=== PATIENT | male | born 1960 | race Caucasian/White ===

== ENCOUNTER 2018-02-12 10:17 | Emergency (ER) | payer OTHER ==
[2018-02-12] MEDS ORDERED: Albuterol/Ipratropium NEB.SOL* Albuterol 2.5 MG/Ipratropium 0.5 MG 3 ML INH ONE ×2 (11:02→12:29)
[2018-02-12] MEDS ORDERED: methylPREDNISolone 125 MG* 2 ML VIAL IV ONE (11:03)
--- NOTE | 2018-02-12 11:32 | RAD ---
Indication: Shortness of breath, chest pain, cough. Chest pressure. Failed treatment with Z-Eric. Comparison: February 05, 2018 Technique: Upright AP 1116 hours Report: Elevated lung volumes. Mild prominence of interstitial markings similar to the prior exam. No focal pulmonary lesion, compelling alveolar consolidation, pleural effusion, pneumothorax. The heart, pulmonary vasculature, and mediastinal contours are unremarkable. IMPRESSION: Stigmata of probable chronic obstructive pulmonary disease. No acute cardiopulmonary process evident.
[2018-02-12 11:44] LABS: ABS Basophils 0 10^3/ul (0-0.2); ABS Eosinophils 0.1 10^3/ul (0-0.6); ABS Lymphocytes 2.5 10^3/ul (1.0-4.8); ABS Monocytes 0.9 10^3/ul (0-0.8); ABS Neutrophils 7.3 10^3/ul (1.5-7.7); ABS Nucleated RBC 0 10^3/ul; Eosinophil % 0.9 % (0-6); Hematocrit 43 % (42-52); Hemoglobin 14.5 g/dl (14.0-18.0); Lymphocyte % 22.9 % (25-47); Mean Corpuscular HGB Conc 34 g/dl (31-36); Mean Corpuscular Hemoglobin 31 pg (27-31); Mean Corpuscular Volume 91 fL (80-94); Mean Platelet Volume 7.6 um3 (7.4-10.4); Nucleated Red Blood Cells % 0.1; Platelet Count 354 10^3/ul (150-450); Red Blood Count 4.72 10^6/ul (4.0-5.4); Red Cell Distribution Width 13 % (10.5-15); White Blood Count 10.8 10^3/ul (3.5-10.8)
[2018-02-12 11:51] LABS: INR 0.89 (0.77-1.02)
[2018-02-12 11:57] LABS: EGFR Non-African American 106.5 (>60)
[2018-02-12 15:09] VITALS: BP 132/81
--- NOTE | 2018-02-12 15:20 | ED ---
Rodolfo Villavicencio Julia, scribed for Mak Louise on 02/12/18 at 1102 . Respiratory - HPI Summary HPI Summary: This patient is a 57 year old M presenting to [facility] accompanied by his family with a chief complaint of SOB and general malaise for the past ten days. He states he has had a cough and congestion and was prescribed Zithromax and Prednisone on 02/03/18 with mild improvement. He reports currently resolved night sweats and fever. He reports current fatigue, throat pain, and mild shoulder pain. He states he had a CXR done about 10 days ago, that was normal. Patient was sent from his primary care physician for further evaluation. - History of Current Complaint Chief Complaint: EDShortnessOfBreath Stated Complaint: SOB-DR SENT Time Seen by Provider: 02/12/18 10:38 Hx Obtained From: Patient Onset/Duration: Gradual Onset, Lasting Weeks, Still Present Pain Intensity: 0 Character: Cough (Nonproductive) Associated Signs and Symptoms: Fever, SOB, Chest Pain with Cough, Diaphoresis, Hoarseness - throat pain - Allergy/Home Medications Allergies/Adverse Reactions: Allergies Allergy/AdvReac Type Severity Reaction Status Date / Time MS Coconut Flavor Allergy See Comment Verified 03/23/16 10:32 [Coconut Flavor] MS Molds & Smuts Allergy Difficulty Verified 03/23/16 10:32 Breathing PMH/Surg Hx/FS Hx/Imm Hx Respiratory History: Reports: Hx Asthma GI History: Reports: Hx Gastroesophageal Reflux Disease - ON MEDS History: Reports: Hx Kidney Stones - HX OF Sensory History: Reports: Hx Contacts or Glasses - READING GLASSES Denies: Hx Hearing Aid Opthamlomology History: Reports: Hx Contacts or Glasses - READING GLASSES - Surgical History Surgery Procedure, Year, and Place: CYST EXC FROM [place]OW 2010 [facility] [place] CYSTO, STENT 2011 [facility] [place] Hx Anesthesia Reactions: No Infectious Disease History: No Infectious Disease History: Denies: Traveled Outside the [place] in Last 30 Days - Social History Alcohol Use: Rare Substance Use Type: Reports: None Hx Tobacco Use: No Smoking Status (MU): Never Smoked Tobacco Review of Systems Positive: Fever, Fatigue, Skin Diaphoresis Positive: Sore Throat, Nasal Discharge - congestion Positive: Shortness Of Breath, Cough, Other - chest congestion Positive: Myalgia - shoulder pain All Other Systems Reviewed And Are Negative: Yes Physical Exam - Summary Physical Exam Summary: Appearance: Well appearing, no pain distress Skin: warm, dry, reflects adequate perfusion Head/face: normal Eyes: EOMI, RAYNE ENT: normal Neck: supple, non-tender Respiratory: CTA, breath sounds present Cardiovascular: RRR, pulses symmetrical Abdomen: non-tender, soft Bowel: present Musculoskeletal: normal, strength/ROM intact Neuro: normal, sensory motor intact, A&Ox3 Triage Information Reviewed: Yes Vital Signs On Initial Exam: Initial Vitals Temp Pulse Resp BP Pulse Ox 98.2 F 72 22 143/72 100 02/12/18 10:20 02/12/18 10:20 02/12/18 10:20 02/12/18 10:20 02/12/18 10:20 Vital Signs Reviewed: Yes Diagnostics - Vital Signs Vital Signs Temp Pulse Resp BP Pulse Ox 02/12/18 10:30 69 147/83 100 02/12/18 10:20 98.2 F 72 22 143/72 100 - Laboratory Lab Results: Lab Results 02/12/18 02/12/18 02/12/18 Range/Units 11:20 11:20 11:20 WBC 10.8 (3.5-10.8) 10^3/ul RBC 4.72 (4.0-5.4) 10^6/ul Hgb 14.5 (14.0-18.0) g/dl Hct 43 (42-52) % MCV 91 (80-94) fL MCH 31 (27-31) pg MCHC 34 (31-36) g/dl RDW 13 (10.5-15) % Plt Count 354 (150-450) 10^3/ul MPV 7.6 (7.4-10.4) um3 Neut % (Auto) 67.3 (38-83) % Lymph % (Auto) 22.9 L (25-47) % Edmonson % (Auto) 8.6 H (0-7) % Eos % (Auto) 0.9 (0-6) % Baso % (Auto) 0.3 (0-2) % Absolute Neuts (auto) 7.3 (1.5-7.7) 10^3/ul Absolute Lymphs (auto) 2.5 (1.0-4.8) 10^3/ul Absolute Monos (auto) 0.9 H (0-0.8) 10^3/ul Absolute Eos (auto) 0.1 (0-0.6) 10^3/ul Absolute Basos (auto) 0 (0-0.2) 10^3/ul Absolute Nucleated RBC 0 10^3/ul Nucleated RBC % 0.1 INR (Anticoag Therapy) 0.89 (0.77-1.02) APTT 29.1 (26.0-36.3) seconds D-Dimer, Quantitative < 200 (Less Than 230) ng/mL Sodium (139-145) mmol/L Potassium (3.5-5.0) mmol/L Chloride (101-111) mmol/L Carbon Dioxide (22-32) mmol/L Anion Gap (2-11) mmol/L BUN (6-24) mg/dL Creatinine (0.67-1.17) mg/dL Est GFR ( Amer) (>60) Est GFR (Non-Af Amer) (>60) BUN/Creatinine Ratio (8-20) Glucose (70-100) mg/dL Lactic Acid (0.5-2.0) mmol/L Calcium (8.6-10.3) mg/dL Magnesium (1.9-2.7) mg/dL Total Bilirubin (0.2-1.0) mg/dL AST (13-39) U/L ALT (7-52) U/L Alkaline Phosphatase (34-104) U/L Total Creatine Kinase (10-223) U/L Troponin I (<0.04) ng/mL B-Natriuretic Peptide 23 ( - 100) pg/mL Total Protein (6.4-8.9) g/dL Albumin (3.2-5.2) g/dL Globulin (2-4) g/dL Albumin/Globulin Ratio (1-3) TSH (0.34-5.60) mcIU/mL Monoscreen (Negative) Influenza A (Rapid) (Negative) Influenza B (Rapid) (Negative) 02/12/18 02/12/18 02/12/18 Range/Units 11:20 11:20 11:20 WBC (3.5-10.8) 10^3/ul RBC (4.0-5.4) 10^6/ul Hgb (14.0-18.0) g/dl Hct (42-52) % MCV (80-94) fL MCH (27-31) pg MCHC (31-36) g/dl RDW (10.5-15) % Plt Count (150-450) 10^3/ul MPV (7.4-10.4) um3 Neut % (Auto) (38-83) % Lymph % (Auto) (25-47) % Edmonson % (Auto) (0-7) % Eos % (Auto) (0-6) % Baso % (Auto) (0-2) % Absolute Neuts (auto) (1.5-7.7) 10^3/ul Absolute Lymphs (auto) (1.0-4.8) 10^3/ul Absolute Monos (auto) (0-0.8) 10^3/ul Absolute Eos (auto) (0-0.6) 10^3/ul Absolute Basos (auto) (0-0.2) 10^3/ul Absolute Nucleated RBC 10^3/ul Nucleated RBC % INR (Anticoag Therapy) (0.77-1.02) APTT (26.0-36.3) seconds D-Dimer, Quantitative (Less Than 230) ng/mL Sodium 138 L (139-145) mmol/L Potassium 3.5 (3.5-5.0) mmol/L Chloride 101 (101-111) mmol/L Carbon Dioxide 25 (22-32) mmol/L Anion Gap 12 H (2-11) mmol/L BUN 25 H (6-24) mg/dL Creatinine 0.76 (0.67-1.17) mg/dL Est GFR ( Amer) 136.9 (>60) Est GFR (Non-Af Amer) 106.5 (>60) BUN/Creatinine Ratio 32.9 H (8-20) Glucose 94 (70-100) mg/dL Lactic Acid 1.4 (0.5-2.0) mmol/L Calcium 9.5 (8.6-10.3) mg/dL Magnesium 2.1 (1.9-2.7) mg/dL Total Bilirubin 0.40 (0.2-1.0) mg/dL AST 15 (13-39) U/L ALT 23 (7-52) U/L Alkaline Phosphatase 43 (34-104) U/L Total Creatine Kinase 33 (10-223) U/L Troponin I 0.00 (<0.04) ng/mL B-Natriuretic Peptide ( - 100) pg/mL Total Protein 6.9 (6.4-8.9) g/dL Albumin 4.1 (3.2-5.2) g/dL Globulin 2.8 (2-4) g/dL Albumin/Globulin Ratio 1.5 (1-3) TSH 3.67 (0.34-5.60) mcIU/mL Monoscreen Negative (Negative) Influenza A (Rapid) (Negative) Influenza B (Rapid) (Negative) 02/12/18 02/12/18 Range/Units 11:34 14:15 WBC (3.5-10.8) 10^3/ul RBC (4.0-5.4) 10^6/ul Hgb (14.0-18.0) g/dl Hct (42-52) % MCV (80-94) fL MCH (27-31) pg MCHC (31-36) g/dl RDW (10.5-15) % Plt Count (150-450) 10^3/ul MPV (7.4-10.4) um3 Neut % (Auto) (38-83) % Lymph % (Auto) (25-47) % Edmonson % (Auto) (0-7) % Eos % (Auto) (0-6) % Baso % (Auto) (0-2) % Absolute Neuts (auto) (1.5-7.7) 10^3/ul Absolute Lymphs (auto) (1.0-4.8) 10^3/ul Absolute Monos (auto) (0-0.8) 10^3/ul Absolute Eos (auto) (0-0.6) 10^3/ul Absolute Basos (auto) (0-0.2) 10^3/ul Absolute Nucleated RBC 10^3/ul Nucleated RBC % INR (Anticoag Therapy) (0.77-1.02) APTT (26.0-36.3) seconds D-Dimer, Quantitative (Less Than 230) ng/mL Sodium (139-145) mmol/L Potassium (3.5-5.0) mmol/L Chloride (101-111) mmol/L Carbon Dioxide (22-32) mmol/L Anion Gap (2-11) mmol/L BUN (6-24) mg/dL Creatinine (0.67-1.17) mg/dL Est GFR ( Amer) (>60) Est GFR (Non-Af Amer) (>60) BUN/Creatinine Ratio (8-20) Glucose (70-100) mg/dL Lactic Acid (0.5-2.0) mmol/L Calcium (8.6-10.3) mg/dL Magnesium (1.9-2.7) mg/dL Total Bilirubin (0.2-1.0) mg/dL AST (13-39) U/L ALT (7-52) U/L Alkaline Phosphatase (34-104) U/L Total Creatine Kinase (10-223) U/L Troponin I 0.00 (<0.04) ng/mL B-Natriuretic Peptide ( - 100) pg/mL Total Protein (6.4-8.9) g/dL Albumin (3.2-5.2) g/dL Globulin (2-4) g/dL Albumin/Globulin Ratio (1-3) TSH (0.34-5.60) mcIU/mL Monoscreen (Negative) Influenza A (Rapid) Negative (Negative) Influenza B (Rapid) Negative (Negative) Result Diagrams: 02/12/18 11:20 02/12/18 11:20 Lab Statement: Any lab studies that have been ordered have been reviewed, and results considered in the medical decision making process. - Radiology CXR Radiology Interpretation Completed By: Radiologist - Stigmata of probable chronic obstructive pulmonary disease. No acute cardiopulmonary process evident. ED Physician has reviewed this report. - EKG 1120 Cardiac Rate: NL - at 61 BPM EKG Rhythm: Sinus Rhythm EKG Interpretation: no acute changes Re-Evaluation - Re-Evaluation 1 Re-Evaluation Time: 12:29 Change: Improved - Pt thinks he feels better now. 2 Re-Evaluation Time: 14:45 Comment: Patient does not want to wait for UA. Disposition - Course Course Of Treatment: Pt presents with SOB and general malaise for the past ten days. He states he has had a cough and congestion and was prescribed Zithromax and Prednisone on 02/03/18 with mild improvement. Pt had negative CXR ten days ago. Pt has hx of asthma. A CXR and EKG are of no acute concern. Patient is given two nebulizer tx. Bloodwork is unremarkable. Influenza swabs are negative. Pt did not want to wait for UA results. Patient is discharged and instructed to follow up with PCP. - Differential Dx - Cardiopulmonary Differential Diagnoses - Cardiopulmonary: Asthma, Bronchitis, Exacerbation Of COPD, Lower Resp Infection, Pulmonary Embolism - Diagnoses Provider Diagnoses: Exacerbation of asthma, Bronchitis Discharge - Sign-Out/Discharge Documenting (check all that apply): Discharge - Discharge Plan Condition: Stable Disposition: HOME Prescriptions: Albuterol 2.5MG/3ML (0.083%)* [Ventolin 2.5 MG/3 ML NEB.MIKY*] 2.5 mg INH Q6H PRN #1 neb.miky MDD 3 PRN Reason: Sob/Wheezing methylPREDNISolone [Medrol Dosepak 4 MG*] 0 mg PO .SEE DAVID INSTRUCTION #1 tab Patient Education Materials: Asthma (ED) Referrals: Deborah Nicholson MD [Primary Care Provider] - 3 Days (Follow up with your primary care physician within three days.) - Billing Disposition and Condition Condition: STABLE Disposition: HOME The documentation as recorded by the Rodolfo urban Julia accurately reflects the service I personally performed and the decisions made by Dani sanchez Emmanuel.
== END 2018-02-12 15:08 | disposition home or self-care (01) ==
LOC: ED 10:17
DX: J45.901 Unspecified asthma with (acute) exacerbation (principal); J40 Bronchitis, not specified as acute or chronic; R50.9 Fever, unspecified; R06.02 Shortness of breath; R07.9 Chest pain, unspecified; R05 Cough; Z87.19 Personal history of other diseases of the digestive system
CPT/HCPCS: 36415; 71045; 80053; 82550; 83605; 83735; 83880; 84443; 84484; 85025; 85379; 85610; 85730; 86308; 86664; 86665; 87040; 87502; 93005; 94640; 96374; 99282; A9270-GY; J2930